=== PATIENT | female | born 1980 | race Caucasian/White ===

== ENCOUNTER 2021-08-01 17:55 | Emergency (ER) | payer SELFPAY ==
[~2021-08-01] VITALS: Ht 162.6 cm; Wt 54.5 kg
[2021-08-01 18:09] VITALS: BP 138/84
[2021-08-01 18:48] LABS: BASOPHILS % (AUTO) 0.1 % (0-1); EOSINOPHILS % (AUTO) 0 % (0-6); HEMOGLOBIN 12.4 g/dl (12.0-16.0); LYMPHOCYTES # (AUTO) 0.6 X10'3 (1.1-4.8); LYMPHOCYTES % (AUTO) 2.8 % (21-51); MEAN CORPUSCULAR HEMOGLOBIN 29.8 PG (27.0-31.0); MEAN CORPUSCULAR HGB CONC 33.5 g/dL (33.0-36.5); MONOCYTES # (AUTO) 1.3 X10'3 (0-0.9); MONOCYTES % (AUTO) 6.1 % (2-12); PLATELET COUNT 262 X10'3 (140-440); RED BLOOD COUNT 4.15 X10'6 (4.20-5.60); RED CELL DISTRIBUTION WIDTH 13.1 % (11.5-14.5); WHITE BLOOD COUNT 20.9 X10'3 (4.5-11.0)
[2021-08-01 18:50] LABS: CLARITY,URINE CLOUDY (Clear); COLOR,URINE YELLOW (Yellow); GLUCOSE, URINE NEGATIVE (Neg); KETONES,URINE NEGATIVE (Neg); LEUKOCYTE ESTERASE ,URINE SMALL (Neg); NITRITES, URINE NEGATIVE (Neg); OCCULT BLOOD,URINE SMALL (Neg); PROTEIN,URINE 30 mg/dl (Neg); URINE HCG NEGATIVE (NEG); UROBILINOGEN,URINE 0.2 E.U/dL (0.2-1.0)
[2021-08-01 18:55] LABS: UA COLLECTION TYPE CLN CATCH MIDSTREAM
[2021-08-01 18:55] LABS: ALANINE AMINOTRANSFERASE 21 U/L (12-78); ALBUMIN 3.8 G/DL (3.4-5.0); ALBUMIN/GLOBULIN RATIO 1.1 (1.1-1.5); ALKALINE PHOSPHATASE 59 IU/L (46-116); ANION GAP 11 (8-16); ASPARTATE AMINO TRANSFERASE 14 U/L (10-37); BILIRUBIN,TOTAL 0.8 MG/DL (0.1-1.0); BLOOD UREA NITROGEN 11 MG/DL (7-18); CALCIUM 8.5 MG/DL (8.5-10.1); CHLORIDE 99 MMOL/L (99-107); CREATININE 0.92 MG/DL (0.40-0.90); GLUCOSE 121 MG/DL (70-104); LIPASE 149 U/L (73-393); POTASSIUM 3.5 MMOL/L (3.5-5.1); SODIUM 135 MMOL/L (135-145); TOTAL CARBON DIOXIDE 24.6 MMOL/L (24-32); TOTAL PROTEIN 7.2 G/DL (6.4-8.2); eGFR 68 ML/MIN
[2021-08-01 18:59] LABS: WBC,URINE 30-50 /HPF (0-4)
[2021-08-01 19:00] LABS: BACTERIA,URINE 2+ /HPF (Neg); MUCUS STRANDS FEW /LPF (Neg); SQUAMOUS EPITHELIAL CELL,UR MODERATE /LPF (FEW); WBC CLUMPS,URINE FEW /HPF (NEGATIVE)
--- NOTE | 2021-08-01 21:55 | NUR ---
not in lobby
--- NOTE | 2021-08-01 22:25 | NUR ---
not in lobby
--- NOTE | 2021-08-04 09:12 | NUR ---
Called patient and left a voicemail message.
--- NOTE | 2021-08-06 09:36 | NUR ---
Attempted to contact patient, left a voicemail to call ER back. Dr. Sherwood wanted to call patient and have her return and rechecked.
== END 2021-08-01 22:26 | disposition left against medical advice (07) ==
LOC: ER 17:56
DX: R10.9 Unspecified abdominal pain (principal); R39.15 Urgency of urination; R50.9 Fever, unspecified; M54.9 Dorsalgia, unspecified; R11.0 Nausea; G43.909 Migraine, unspecified, not intractable, without status migrainosus; Z87.440 Personal history of urinary (tract) infections; Z87.442 Personal history of urinary calculi
CPT/HCPCS: 36415; 80053; 81001; 81025; 83690; 85025; 87077; 87088; 87186; 99281; 99283

== ENCOUNTER 2022-10-23 15:40 | Inpatient (IN) | payer SELFPAY ==
[~2022-10-23] VITALS: Ht 162.6 cm; Wt 52.3 kg
[2022-10-23] MEDS ORDERED: acetaminophen 325mg tablet PO STA (16:18)
[2022-10-23] MEDS ORDERED: CefTRIAXone 2gm/D5W 50ml BAG 50 ML IV ONE (16:20)
[2022-10-23] MEDS ORDERED: normal saline 1000ML IV soln IV ONE (16:20)
[2022-10-23] MEDS ORDERED: morphine 4 MG/ML inj SYRINge IV ONE (16:25)
[2022-10-23] MEDS ORDERED: ondansetron/PF 4mg/2ml inj IV ONE (16:25)
[2022-10-23 16:46] LABS: BASOPHILS # (AUTO) 0.1 X10'3 (0-0.2); BASOPHILS % (AUTO) 0.3 % (0-1); EOSINOPHILS % (AUTO) 0 % (0-6); HEMATOCRIT 34.9 % (35.0-45.0); HEMOGLOBIN 11.2 g/dl (12.0-16.0); LYMPHOCYTES # (AUTO) 0.6 X10'3 (1.1-4.8); LYMPHOCYTES % (AUTO) 2.8 % (21-51); MEAN CORPUSCULAR HEMOGLOBIN 25.5 PG (27.0-31.0); MEAN CORPUSCULAR HGB CONC 32.3 g/dL (33.0-36.5); MEAN CORPUSCULAR VOLUME 79.2 FL (78-98); MEAN PLATELET VOLUME 7.4 FL (7.4-10.4); MONOCYTES # (AUTO) 1.1 X10'3 (0-0.9); MONOCYTES % (AUTO) 4.8 % (2-12); NEUTROPHILS # (AUTO) 21.6 X10'3 (1.8-7.7); NEUTROPHILS % (AUTO) 92.1 % (42-75); PLATELET COUNT 282 X10'3 (140-440); RED CELL DISTRIBUTION WIDTH 18.6 % (11.5-14.5); WHITE BLOOD COUNT 23.4 X10'3 (4.5-11.0)
[2022-10-23 17:03] LABS: ALANINE AMINOTRANSFERASE 33 U/L (12-78); ALBUMIN 3.8 G/DL (3.4-5.0); ALBUMIN/GLOBULIN RATIO 1.1 (1.1-1.5); ALKALINE PHOSPHATASE 96 IU/L (46-116); ANION GAP 10 (8-16); ASPARTATE AMINO TRANSFERASE 24 U/L (10-37); BILIRUBIN,TOTAL 0.8 MG/DL (0.1-1.0); BLOOD UREA NITROGEN 18 MG/DL (7-18); BUN/CREATININE RATIO 16.2 (10.0-20.0); CALCIUM 8.9 MG/DL (8.5-10.1); CHLORIDE 95 MMOL/L (99-107); CREATININE 1.11 MG/DL (0.40-0.90); GLUCOSE 117 MG/DL (70-104); LIPASE 215 U/L (73-393); POTASSIUM 3.5 MMOL/L (3.5-5.1); SODIUM 128 MMOL/L (135-145); TOTAL PROTEIN 7.4 G/DL (6.4-8.2); eGFR 54 ML/MIN
[2022-10-23] MEDS ORDERED: normal saline 1000ml 1,000 ML IV ONE (17:20)
[2022-10-23 17:29] LABS: ANISOCYTOSIS 2+; MICROCYTOSIS 1+; PLATELET ESTIMATE NORMAL
[2022-10-23 17:54] LABS: CLARITY,URINE SLIGHTLY CLOUDY (Clear); COLOR,URINE YELLOW (Yellow); GLUCOSE, URINE NEGATIVE (Neg); KETONES,URINE NEGATIVE (Neg); LEUKOCYTE ESTERASE ,URINE SMALL (Neg); NITRITES, URINE NEGATIVE (Neg); OCCULT BLOOD,URINE LARGE (Neg); PROTEIN,URINE TRACE mg/dl (Neg); URINE HCG NEGATIVE (NEG); UROBILINOGEN,URINE 0.2 E.U/dL (0.2-1.0)
[2022-10-23 17:55] LABS: UA COLLECTION TYPE CLN CATCH MIDSTREAM
[2022-10-23 18:05] LABS: BACTERIA,URINE 1+ /HPF (Neg); WBC,URINE 20-30 /HPF (0-4)
[2022-10-23 18:06] LABS: SQUAMOUS EPITHELIAL CELL,UR MODERATE /LPF (FEW)
[2022-10-23 18:14] LABS: URINE AMPHETAMINE SCREEN POSITIVE (Neg); URINE BARBITUATE SCREEN NEGATIVE (Neg); URINE BENZODIAZEPINES SCREEN NEGATIVE (Neg); URINE CANNABINOID SCREEN POSITIVE (Neg); URINE COCAINE SCREEN NEGATIVE (Neg); URINE METHADONE SCREEN NEGATIVE (Neg); URINE OPIATE SCREEN POSITIVE (Neg); URINE PHENCYCLIDINE SCREEN NEGATIVE (Neg)
[2022-10-23] MEDS ORDERED: VANCOmycin 1250MG/NS 250ml Bag 250 ML IV STA (19:33)
[2022-10-23] MEDS ORDERED: ondansetron/PF 4mg/2ml inj IV PRN (19:40)
[2022-10-23] MEDS ORDERED: magnesium hydroxide 30ml (MOM) UD suspension PO PRN (19:40)
[2022-10-23] MEDS ORDERED: acetaminophen 325mg tablet PO PRN (19:40)
[2022-10-23] MEDS ORDERED: potassium Cl 20 mEq SR tablet PO PRN (19:40)
[2022-10-23] MEDS ORDERED: magnesium 4gm in 100ml NS 100 ML IV PRN (19:40)
[2022-10-23] MEDS ORDERED: potassium Cl 40MEQ/1/2NS 520ml 520 ML IV PRN (19:40)
[2022-10-23] MEDS ORDERED: mag hydrox/Alum hydrox/simeth 30ml oral suspension PO PRN (19:40)
[2022-10-23] MEDS: docusate sod 100mg capsule PO SCH (20:00)
[2022-10-23] MEDS: K and/or MAG REPLACEMENT MC SCH (20:12)
[2022-10-23] MEDS: enoxaparin 40mg/0.4ml syringe SQ SCH (20:26)
[2022-10-23] MEDS ORDERED: HYDROcodone/acetaminophen 5mg/325mg tablet PO PRN (20:45)
[2022-10-23] MEDS ORDERED: HYDROmorphone inj. 0.5 MG/0.5 ML DISP.SYRIN IV PRN (20:45)
[2022-10-23] MEDS ORDERED: NO HOME MEDS (21:23)
[2022-10-23] MEDS: normal saline 1000ml 1,000 ML IV SCH (21:46)
[2022-10-24] MEDS: normal saline 1000ml 1,000 ML IV SCH ×4 (01:54→20:28)
[2022-10-24 03:12] LABS: BASOPHILS # (AUTO) 0.1 X10'3 (0-0.2); BASOPHILS % (AUTO) 0.4 % (0-1); EOSINOPHILS % (AUTO) 0.1 % (0-6); HEMATOCRIT 32.1 % (35.0-45.0); HEMOGLOBIN 10.2 g/dl (12.0-16.0); LYMPHOCYTES # (AUTO) 0.9 X10'3 (1.1-4.8); LYMPHOCYTES % (AUTO) 3.3 % (21-51); MEAN CORPUSCULAR HEMOGLOBIN 25.3 PG (27.0-31.0); MEAN CORPUSCULAR HGB CONC 31.7 g/dL (33.0-36.5); MEAN CORPUSCULAR VOLUME 79.9 FL (78-98); MEAN PLATELET VOLUME 7.5 FL (7.4-10.4); MONOCYTES # (AUTO) 0.8 X10'3 (0-0.9); MONOCYTES % (AUTO) 3.2 % (2-12); NEUTROPHILS # (AUTO) 24.2 X10'3 (1.8-7.7); PLATELET COUNT 218 X10'3 (140-440); RED BLOOD COUNT 4.02 X10'6 (4.20-5.60)
[2022-10-24 03:25] LABS: ALANINE AMINOTRANSFERASE 27 U/L (12-78); ALBUMIN 2.6 G/DL (3.4-5.0); ALBUMIN/GLOBULIN RATIO 0.8 (1.1-1.5); ALKALINE PHOSPHATASE 77 IU/L (46-116); ANION GAP 8 (8-16); ASPARTATE AMINO TRANSFERASE 24 U/L (10-37); BILIRUBIN,TOTAL 0.5 MG/DL (0.1-1.0); BLOOD UREA NITROGEN 10 MG/DL (7-18); BUN/CREATININE RATIO 9.3 (10.0-20.0); CALCIUM 7.1 MG/DL (8.5-10.1); CHLORIDE 104 MMOL/L (99-107); CREATININE 1.07 MG/DL (0.40-0.90); GLUCOSE 97 MG/DL (70-104); MAGNESIUM 1.4 MG/DL (1.5-2.4); SODIUM 134 MMOL/L (135-145); TOTAL CARBON DIOXIDE 21.8 MMOL/L (24-32); TOTAL PROTEIN 5.7 G/DL (6.4-8.2); eGFR 57 ML/MIN
[2022-10-24 03:29] LABS: TOTAL CELLS COUNTED 100
[2022-10-24 03:30] LABS: ANISOCYTOSIS 2+; MICROCYTOSIS 1+; PLATELET ESTIMATE NORMAL
[2022-10-24] MEDS ORDERED: calcium chloride 100 MG/1 ML inj IV ONE (03:45)
[2022-10-24] MEDS: HYDROcodone/acetaminophen 10/325mg tab PO PRN ×3 (03:49→17:48)
--- NOTE | 2022-10-24 05:19 | NUR ---
father # - [phone] aunt ph# - [phone]
--- NOTE | 2022-10-24 06:05 | NUR ---
Patient in room ED 2. I have received report from Lina in the ED and had the opportunity to ask questions and assume patient care.
[2022-10-24 06:15] VITALS: BP 100/57
[2022-10-24] MEDS ORDERED: CefTRIAXone/D5W-Rocephin 1gm 50 ML IV SCH (08:00)
[2022-10-24] MEDS: K and/or MAG REPLACEMENT MC SCH ×2 (08:00→20:00)
[2022-10-24] MEDS: docusate sod 100mg capsule PO SCH ×2 (08:20→19:56)
[2022-10-24] MEDS: vancomycin/NS 1 GM ADD-VANTAGE 250 ML IV SCH ×2 (09:20→20:27)
[2022-10-24 10:00] VITALS: BP 102/58
--- NOTE | 2022-10-24 10:09 | NUR ---
Received order for consult. Met with patient in regards to substance use and to see if patient is interested in resources for treatment options. Patient is interested in outpatient services. I gave patient a list of outpatient facilities, Let's recovers information and my card to call me with any questions.
[2022-10-24] MEDS: piperacillin/tazo 3.375gm/50ml 50 ML IV SCH ×2 (11:14→16:22)
--- NOTE | 2022-10-24 18:30 | NUR ---
Patient in room [facility]TH[facility] 4013. I have received report from CALLIE Monreal and had the opportunity to ask questions and assume patient care.
--- NOTE | 2022-10-24 18:31 | NUR ---
Problems reprioritized. Patient report given, questions answered & plan of care reviewed with Emilia.
--- NOTE | 2022-10-24 19:00 | NUR ---
Pt reportedly refused 1800 vital signs.
[2022-10-24] MEDS: enoxaparin 40mg/0.4ml syringe SQ SCH (19:56)
[2022-10-24 22:00] VITALS: BP 105/61
[2022-10-25] MEDS: piperacillin/tazo 3.375gm/50ml 50 ML IV SCH ×4 (00:15→23:32)
[2022-10-25] MEDS: HYDROcodone/acetaminophen 10/325mg tab PO PRN ×2 (00:51→23:44)
--- NOTE | 2022-10-25 04:56 | NUR ---
COMMUNITY COORDINATOR documentation: I have reviewed and agree with all interventions, assessments performed and documented by NIDHI PITTMAN COMMUNITY COORDINATOR.
--- NOTE | 2022-10-25 05:04 | NUR ---
Annabel , the patient's mother (so stated on phone) called for information on patient. nothing on chart with permission to give information and patient is sleeping. will ask pt when she is awake for permission or give her phone to update her mother herself.
[2022-10-25 06:00] VITALS: BP 96/57
--- NOTE | 2022-10-25 06:33 | NUR ---
Problems reprioritized. Patient report given, questions answered & plan of care reviewed with CALLIE Snow.
[2022-10-25] MEDS: K and/or MAG REPLACEMENT MC SCH ×2 (07:25→19:57)
[2022-10-25] MEDS ORDERED: VANCOMYCIN LEVEL IV ONE (07:30)
[2022-10-25] MEDS: normal saline 1000ml 1,000 ML IV SCH ×3 (09:04→23:07)
[2022-10-25] MEDS: docusate sod 100mg capsule PO SCH ×2 (09:04→19:58)
[2022-10-25] MEDS: vancomycin/NS 1 GM ADD-VANTAGE 250 ML IV SCH (09:04)
[2022-10-25 09:53] LABS: ALANINE AMINOTRANSFERASE 27 U/L (12-78); ALBUMIN 2.8 G/DL (3.4-5.0); ALBUMIN/GLOBULIN RATIO 0.7 (1.1-1.5); ALKALINE PHOSPHATASE 92 IU/L (46-116); ANION GAP 14 (8-16); ASPARTATE AMINO TRANSFERASE 23 U/L (10-37); BILIRUBIN,TOTAL 0.3 MG/DL (0.1-1.0); BLOOD UREA NITROGEN 13 MG/DL (7-18); BUN/CREATININE RATIO 12.1 (10.0-20.0); CHLORIDE 105 MMOL/L (99-107); CREATININE 1.07 MG/DL (0.40-0.90); GLUCOSE 90 MG/DL (70-104); MAGNESIUM 2.1 MG/DL (1.5-2.4); POTASSIUM 3.5 MMOL/L (3.5-5.1); SODIUM 140 MMOL/L (135-145); TOTAL CARBON DIOXIDE 21.5 MMOL/L (24-32); TOTAL PROTEIN 6.6 G/DL (6.4-8.2); VANCOMYCIN,TROUGH 9.7 UG/ML (6.0-14.0); eGFR 57 ML/MIN
[2022-10-25 10:00] VITALS: BP 122/71
[2022-10-25 10:00] LABS: BASOPHILS # (AUTO) 0.1 X10'3 (0-0.2); BASOPHILS % (AUTO) 0.5 % (0-1); EOSINOPHILS # (AUTO) 0.1 X10'3 (0-0.9); EOSINOPHILS % (AUTO) 1.1 % (0-6); HEMOGLOBIN 10.8 g/dl (12.0-16.0); MEAN CORPUSCULAR HGB CONC 31.6 g/dL (33.0-36.5); MEAN CORPUSCULAR VOLUME 82.2 FL (78-98); MEAN PLATELET VOLUME 7.9 FL (7.4-10.4); MONOCYTES # (AUTO) 0.5 X10'3 (0-0.9); MONOCYTES % (AUTO) 4.5 % (2-12); NEUTROPHILS # (AUTO) 10.2 X10'3 (1.8-7.7); NEUTROPHILS % (AUTO) 85.9 % (42-75); PLATELET COUNT 188 X10'3 (140-440); RED BLOOD COUNT 4.14 X10'6 (4.20-5.60); RED CELL DISTRIBUTION WIDTH 19.3 % (11.5-14.5); WHITE BLOOD COUNT 11.8 X10'3 (4.5-11.0)
[2022-10-25 10:15] LABS: CALCIUM 8.3 MG/DL (8.5-10.1)
[2022-10-25] MEDS: HYDROmorphone 1 mg/ml syringe IV PRN ×3 (10:16→19:00)
[2022-10-25 18:00] VITALS: BP 121/71
--- NOTE | 2022-10-25 18:20 | NUR ---
Patient in room [facility]TH[facility] 4013. I have received report from CALLIE Snow and had the opportunity to ask questions and assume patient care.
--- NOTE | 2022-10-25 18:37 | NUR ---
Problems reprioritized. Patient report given, questions answered & plan of care reviewed with Mary.
[2022-10-25] MEDS: VANCOmycin 1250MG/NS 250ml Bag 250 ML IV SCH (20:00)
[2022-10-25] MEDS: enoxaparin 40mg/0.4ml syringe SQ SCH (20:00)
[2022-10-25 22:00] VITALS: BP 107/63
[2022-10-26] MEDS: HYDROmorphone 1 mg/ml syringe IV PRN (05:50)
[2022-10-26 06:00] VITALS: BP 109/69
--- NOTE | 2022-10-26 06:26 | NUR ---
Problems reprioritized. Patient report given, questions answered & plan of care reviewed with CALLIE Steel.
--- NOTE | 2022-10-26 06:47 | NUR ---
Patient in room [facility]TH[facility] 4013. I have received report from Mary and had the opportunity to ask questions and assume patient care.
[2022-10-26] MEDS: VANCOmycin 1250MG/NS 250ml Bag 250 ML IV SCH ×2 (07:03→19:29)
[2022-10-26] MEDS: K and/or MAG REPLACEMENT MC SCH ×2 (07:03→20:00)
[2022-10-26] MEDS: docusate sod 100mg capsule PO SCH ×2 (09:40→19:30)
[2022-10-26 10:00] VITALS: BP 101/65
[2022-10-26 10:00] LABS: BASOPHILS % (AUTO) 0.8 % (0-1); EOSINOPHILS # (AUTO) 0.1 X10'3 (0-0.9); EOSINOPHILS % (AUTO) 2.1 % (0-6); HEMOGLOBIN 9.6 g/dl (12.0-16.0); LYMPHOCYTES # (AUTO) 0.8 X10'3 (1.1-4.8); LYMPHOCYTES % (AUTO) 12.7 % (21-51); MEAN CORPUSCULAR HEMOGLOBIN 25.8 PG (27.0-31.0); MEAN CORPUSCULAR HGB CONC 32.2 g/dL (33.0-36.5); MEAN CORPUSCULAR VOLUME 80.3 FL (78-98); MEAN PLATELET VOLUME 8.1 FL (7.4-10.4); MONOCYTES # (AUTO) 0.5 X10'3 (0-0.9); MONOCYTES % (AUTO) 7.5 % (2-12); NEUTROPHILS # (AUTO) 4.7 X10'3 (1.8-7.7); NEUTROPHILS % (AUTO) 76.9 % (42-75); PLATELET COUNT 200 X10'3 (140-440); RED BLOOD COUNT 3.73 X10'6 (4.20-5.60); RED CELL DISTRIBUTION WIDTH 18.6 % (11.5-14.5); WHITE BLOOD COUNT 6.1 X10'3 (4.5-11.0)
[2022-10-26] MEDS: piperacillin/tazo 3.375gm/50ml 50 ML IV SCH ×3 (10:00→23:52)
[2022-10-26 10:24] LABS: ALANINE AMINOTRANSFERASE 27 U/L (12-78); ALBUMIN 2.5 G/DL (3.4-5.0); ALBUMIN/GLOBULIN RATIO 0.6 (1.1-1.5); ALKALINE PHOSPHATASE 82 IU/L (46-116); ANION GAP 11 (8-16); ASPARTATE AMINO TRANSFERASE 14 U/L (10-37); BILIRUBIN,TOTAL 0.3 MG/DL (0.1-1.0); BLOOD UREA NITROGEN 10 MG/DL (7-18); BUN/CREATININE RATIO 10.3 (10.0-20.0); CHLORIDE 106 MMOL/L (99-107); CREATININE 0.97 MG/DL (0.40-0.90); GLUCOSE 107 MG/DL (70-104); MAGNESIUM 1.6 MG/DL (1.5-2.4); POTASSIUM 3.3 MMOL/L (3.5-5.1); SODIUM 141 MMOL/L (135-145); TOTAL CARBON DIOXIDE 24.3 MMOL/L (24-32); TOTAL PROTEIN 6.5 G/DL (6.4-8.2); eGFR 64 ML/MIN
[2022-10-26] MEDS: potassium Cl 20 mEq SR tablet PO PRN ×2 (11:06→16:18)
[2022-10-26] MEDS: normal saline 1000ml 1,000 ML IV SCH ×3 (11:06→23:52)
[2022-10-26 18:30] VITALS: BP 121/70
--- NOTE | 2022-10-26 18:30 | NUR ---
Patient in room [facility]TH[facility] 4013. I have received report from SHERRILL Snow and had the opportunity to ask questions and assume patient care. Addendum: 10/26/22 at 1999 by Alyson Crump RN Amended: Links added.
[2022-10-26] MEDS: HYDROcodone/acetaminophen 10/325mg tab PO PRN (18:33)
--- NOTE | 2022-10-26 18:38 | NUR ---
Problems reprioritized. Patient report given, questions answered & plan of care reviewed with Jocelin.
[2022-10-26] MEDS: enoxaparin 40mg/0.4ml syringe SQ SCH (19:30)
[2022-10-26 22:00] VITALS: BP 103/72
--- NOTE | 2022-10-27 06:29 | NUR ---
Problems reprioritized. Patient report given, questions answered & plan of care reviewed with CALLIE Garibay. Addendum: 10/27/22 at 0630 by Alyson Crump RN Amended: Links added.
[2022-10-27 06:40] VITALS: BP 101/63
[2022-10-27 06:40] LABS: BASOPHILS # (AUTO) 0.1 X10'3 (0-0.2); EOSINOPHILS # (AUTO) 0.2 X10'3 (0-0.9); EOSINOPHILS % (AUTO) 3.4 % (0-6); HEMATOCRIT 31.3 % (35.0-45.0); LYMPHOCYTES # (AUTO) 0.9 X10'3 (1.1-4.8); LYMPHOCYTES % (AUTO) 18.6 % (21-51); MEAN CORPUSCULAR HEMOGLOBIN 25.4 PG (27.0-31.0); MEAN CORPUSCULAR VOLUME 79.5 FL (78-98); MEAN PLATELET VOLUME 7.7 FL (7.4-10.4); MONOCYTES # (AUTO) 0.6 X10'3 (0-0.9); MONOCYTES % (AUTO) 10.9 % (2-12); NEUTROPHILS # (AUTO) 3.4 X10'3 (1.8-7.7); NEUTROPHILS % (AUTO) 66.1 % (42-75); PLATELET COUNT 273 X10'3 (140-440); RED BLOOD COUNT 3.94 X10'6 (4.20-5.60); RED CELL DISTRIBUTION WIDTH 18.8 % (11.5-14.5); WHITE BLOOD COUNT 5.1 X10'3 (4.5-11.0)
--- NOTE | 2022-10-27 06:40 | NUR ---
Patient in room [facility]TH[facility] 4013. I have received report from Emily and had the opportunity to ask questions and assume patient care.
[2022-10-27 06:54] LABS: ALANINE AMINOTRANSFERASE 23 U/L (12-78); ALBUMIN 2.7 G/DL (3.4-5.0); ALBUMIN/GLOBULIN RATIO 0.6 (1.1-1.5); ALKALINE PHOSPHATASE 80 IU/L (46-116); ANION GAP 8 (8-16); ASPARTATE AMINO TRANSFERASE 14 U/L (10-37); BILIRUBIN,TOTAL 0.3 MG/DL (0.1-1.0); BLOOD UREA NITROGEN 16 MG/DL (7-18); BUN/CREATININE RATIO 16.7 (10.0-20.0); CALCIUM 9.1 MG/DL (8.5-10.1); CHLORIDE 104 MMOL/L (99-107); CREATININE 0.96 MG/DL (0.40-0.90); GLUCOSE 97 MG/DL (70-104); MAGNESIUM 1.7 MG/DL (1.5-2.4); POTASSIUM 4.3 MMOL/L (3.5-5.1); SODIUM 140 MMOL/L (135-145); TOTAL CARBON DIOXIDE 27.8 MMOL/L (24-32); TOTAL PROTEIN 7.1 G/DL (6.4-8.2); eGFR 64 ML/MIN
[2022-10-27 07:00] LABS: VANCOMYCIN,TROUGH 22.7 UG/ML (6.0-14.0)
[2022-10-27] MEDS: piperacillin/tazo 3.375gm/50ml 50 ML IV SCH (07:30)
[2022-10-27] MEDS: docusate sod 100mg capsule PO SCH (07:30)
[2022-10-27] MEDS ORDERED: VANCOMYCIN LEVEL IV ONE (07:30)
[2022-10-27] MEDS: normal saline 1000ml 1,000 ML IV SCH (07:30)
[2022-10-27] MEDS: K and/or MAG REPLACEMENT MC SCH (08:00)
[2022-10-27 10:00] VITALS: BP 107/66
[2022-10-27] MEDS ORDERED: vancomycin/NS 1 GM ADD-VANTAGE 250 ML IV SCH (10:00)
[2022-10-27] MEDS ORDERED: CIPR-202 PO (10:08)
[2022-10-27] MEDS ORDERED: LACT1CAP55 PO (10:08)
--- NOTE | 2022-10-27 12:34 | NUR ---
Pt discharged home with all belongings. Family member picked up pt. Left in stable condition.
== END 2022-10-27 12:30 | disposition home or self-care (01) | DRG 872 ==
LOC: ER 15:40 → ED HOLD 19:39 → ORTHO 4S 10-24 06:30
PROVIDERS: ADMIT Family Medicine; ATTEND Family Medicine
DX: A41.9 Sepsis, unspecified organism (principal); E87.1 Hypo-osmolality and hyponatremia; N10 Acute pyelonephritis; R65.20 Severe sepsis without septic shock; D64.9 Anemia, unspecified; F15.10 Other stimulant abuse, uncomplicated; B96.20 Unspecified Escherichia coli [E. coli] as the cause of diseases classified elsewhere; F12.90 Cannabis use, unspecified, uncomplicated; I95.9 Hypotension, unspecified; N28.9 Disorder of kidney and ureter, unspecified; F17.200 Nicotine dependence, unspecified, uncomplicated; N28.1 Cyst of kidney, acquired; N28.89 Other specified disorders of kidney and ureter; Z82.62 Family history of osteoporosis; Z87.442 Personal history of urinary calculi; Z56.0 Unemployment, unspecified; Z71.6 Tobacco abuse counseling; Z71.51 Drug abuse counseling and surveillance of drug abuser
CPT/HCPCS: 36415; 71045; 74176; 80053; 80202; 80305; 81001; 81025; 83605; 83690; 83735; 84145; 85007; 85008; 85025; 87040; 87077; 87081; 87088; 87186; 93306; 97116; 97161; 97530; 99285; G0378; J0696; J1170; J1650; J2270; J2405; J2543; J3370; J3475; J3490; J7030